=== PATIENT | female | born 1970 | race Caucasian/White ===

== ENCOUNTER 2016-12-24 19:51 | Emergency (ER) | payer SELFPAY ==
[~2016-12-24] VITALS: Ht 180.3 cm; Wt 85.5 kg
[2016-12-24 20:45] LABS: BLOOD UREA NITROGEN 22 mg/dL (7-18)
[2016-12-24 21:06] VITALS: BP 109/62
== END 2016-12-24 22:23 | disposition home or self-care (01) ==
LOC: ED 22:17
DX: S92.325A Nondisplaced fracture of second metatarsal bone, left foot, initial encounter for closed fracture (principal); F17.210 Nicotine dependence, cigarettes, uncomplicated; X58.XXXA Exposure to other specified factors, initial encounter; Y93.89 Activity, other specified; Y92.89 Other specified places as the place of occurrence of the external cause; Y99.8 Other external cause status
CPT/HCPCS: 29515; 36415; 80048; 83880; 85025

== ENCOUNTER 2017-07-23 09:58 | Emergency (ER) | payer MEDICAID ==
[~2017-07-23] VITALS: Ht 180.3 cm; Wt 75.0 kg
[2017-07-23 10:16] VITALS: BP 132/92
[2017-07-23 10:48] LABS: BASOPHILS # (AUTO) 0.03 x10^3/uL (0-0.1); BASOPHILS % (AUTO) 0 % (0-1); EOSINOPHILS # (AUTO) 0.13 x10^3/uL (0-0.4); EOSINOPHILS % (AUTO) 2 % (1-7); LYMPHOCYTES # (AUTO) 3.05 x10^3/uL (1-3.4); LYMPHOCYTES % (AUTO) 36 % (22-44); MD NO; MEAN CORPUSCULAR HEMOGLOBIN 30.8 pg (27.0-34.8); MEAN CORPUSCULAR HGB CONC 32.8 g/dL (32.4-35.8); MEAN CORPUSCULAR VOLUME 94.1 fL (80-100); MICROSCOPIC NOT IND; MONOCYTES % (AUTO) 6 % (2-9); NEUTROPHILS # (AUTO) 4.86 x10^3/uL (1.8-6.8); NEUTROPHILS % (AUTO) 57 % (42-75); PLATELET COUNT 305 x10^3/uL (130-400); RED BLOOD COUNT 4.37 x10^6/uL (3.82-5.3)
[2017-07-23 10:53] LABS: CULTURE INDICATED? NO
[2017-07-23 11:00] LABS: ALBUMIN 3.7 g/dL (3.4-5.0); ANION GAP 7 mmol/L (5-15); CALCIUM 8.3 mg/dL (8.5-10.1); CHLORIDE 110 mmol/L (98-107)
[2017-07-23 11:06] LABS: ALANINE AMINOTRANSFERASE 29 U/L (12-78); ALKALINE PHOSPHATASE 51 U/L (45-117); BILIRUBIN,TOTAL 0.3 mg/dL (0.2-1.0); CREATININE 0.68 mg/dL (0.55-1.02); TOTAL PROTEIN 7.4 g/dL (6.4-8.2)
[2017-07-23] MEDS ORDERED: AZITHROMYCIN 250 MG TABLET ONE (12:18)
[2017-07-23] MEDS ORDERED: CEFTRIAXONE 250 MG ONE (12:18)
[2017-07-23] MEDS ORDERED: CEFTRIAXONE 250 MG IM ONE (12:30)
[2017-07-23] MEDS ORDERED: AZITHROMYCIN 500 MG TABLET PO ONE (12:30)
[2017-07-23 12:53] LABS: CLUE CELLS PRESENT (NONE SEEN); WET PREP WBCS FEW (FEW)
== END 2017-07-23 14:38 | disposition home or self-care (01) ==
LOC: ED 12:56
DX: A56.01 Chlamydial cystitis and urethritis (principal); S92.515G Nondisplaced fracture of proximal phalanx of left lesser toe(s), subsequent encounter for fracture with delayed healing; X58.XXXD Exposure to other specified factors, subsequent encounter
CPT/HCPCS: 36415; 73630; 76830; 80053; 81003; 84703; 85025; 87210; 87491; 87591; 87808; 96372; 99285; J0696